=== PATIENT | female | born 1945 | race Caucasian/White ===

== ENCOUNTER 2021-07-21 22:22 | Emergency (ER) | payer MEDICARE, SELFPAY ==
--- NOTE | ~2021-07-21 | XR_ITS ---
EXAMINATION: XR chest 2V EXAM DATE: 07/21/2021 22:59 INDICATION: Generalized weakness for few hours. TECHNIQUE: Frontal and lateral projections of the chest obtained and reviewed. Comparison is made to prior examination from 06/30/2013. FINDINGS: The lungs are clear. There are no pleural effusions. The cardiomediastinal silhouette is within normal limits. There is no pneumothorax suspected. The bones and soft tissues are unremarkab le. IMPRESSION: No acute cardiopulmonary findings. Reviewed, dictated and finalized at location A. TOLOGY PHYSICIAN
--- NOTE | 2021-07-21 22:30 | ECG_ITS ---
Measurements Intervals [place] Rate: 97 P: 58 W[place]: 165 QRS: 0 QRSD: 87 T: 80 QT: 378 QTc: 482 Interpretive Statements SINUS RHYTHM DELAYED PRECORDIAL R/S TRANSITION BORDERLINE ST-T WAVE ABNORMALITY- INF/HIGH LAT LEADS BASELINE ARTIFACT- I, II, III, AVR, AVL, AVF, V1-V6 BORDERLINE ECG Electronically Signed On 07-22-2021 5:54:06 BEAD FORMING MACHINE OPERATOR by Alberto Valenzuela D.O.
[2021-07-21 22:39] VITALS: BP 220/125; PULSE 112; PULSE 92; RESP 20; TEMP 36.2; O2SAT 99
[2021-07-21 22:46] VITALS: BP 199/91; PULSE 98; RESP 13; O2SAT 98
[2021-07-21 22:59] LABS: Basophils Absolute Auto 0.1 K/mm3 (0.0-0.1); Basophils Percent Auto 0.8 % (0.2-1.2); Eosinophils Absolute Auto 0.2 K/mm3 (0-0.3); Eosinophils Percent Auto 2.5 % (0-4.4); Hematocrit 42.4 % (37.0-47.0); Hemoglobin 14.1 g/dL (12.0-15.0); Immature Granulocyte Absolute 0.01 K/mm3 (0.00-0.031); Immature Granulocyte Percent A 0.2 % (0-0.5); Lymphocytes Absolute Auto 1.17 K/mm3 (0.9-3.2); Lymphocytes Percent Auto 18.4 % (18.3-44.2); Mean Corpuscular HGB Conc 33.3 g/dl (32-36); Mean Corpuscular Hemoglobin 31.6 pg (26-34); Mean Corpuscular Volume 95.1 fl (80-100); Mean Platelet Volume 9.6 fl (7.4-10.4); Monocytes Absolute Auto 0.4 K/mm3 (0.1-0.6); Monocytes Percent Auto 5.5 % (2.6-8.5); Neutrophils Absolute Auto 4.6 K/mm3 (1.3-6.7); Neutrophils Percent Auto 72.6 % (45.5-73.1); Platelet Count Result 243 k/mm3 (150-375); Red Blood Count 4.46 M/mm3 (4.2-5.4); Red Cell Distribution Width 12.6 % (11.5-14.5); White Blood Count 6.4 K/mm3 (4.5-10.0)
[2021-07-21 23:02] VITALS: BP 179/95; PULSE 89; RESP 18; O2SAT 97
[2021-07-21 23:10] LABS: Anion Gap 5 mmol/L (8-16); Blood Urea Nitrogen 14 mg/dL (7-17); Calcium 8.8 mg/dL (8.4-10.2); Carbon Dioxide 28 mmol/L (22-30); Chloride 107 mmol/L (98-107); Estimated Glomerular Filt Rate > 60; Glucose 179 mg/dL (65-110); INR 0.8; Potassium 3.6 mmol/L (3.4-5.0); Prothrombin Time 11.5 Seconds (11.1-14.7); Sodium 140 mmol/L (137-145)
[2021-07-21 23:11] LABS: Partial Thromboplastin Time 25.4 SECONDS (22.3-36.8)
[2021-07-21 23:17] VITALS: BP 178/73; PULSE 87; RESP 12
[2021-07-21 23:22] LABS: Troponin I < 0.012 ng/mL (0.000-0.034)
[2021-07-21 23:32] VITALS: BP 172/72; PULSE 83; RESP 11
[2021-07-21 23:46] VITALS: BP 191/71; PULSE 82; RESP 16
[2021-07-21] MEDS: cloNIDine HCL 0.1 MG TABLET PO (23:57)
[2021-07-22 00:01] VITALS: BP 164/68; PULSE 79; RESP 18; O2SAT 98
--- NOTE | 2021-07-22 00:28 | ED.GENADULT ---
HPI - General Adult General Chief complaint: Chest Pain Stated complaint: weakness Time Seen by Provider: 07/21/21 22:44 Source: patient Mode of arrival: ambulatory Limitations: no limitations History of Present Illness HPI narrative: 76-year-old with a history of hypertension, anxiety here with complaints of sudden onset of not feeling well soon after she went to bed. She states that she felt weird. But denied any chest pain, shortness of breath. She states that both her face and arms were tingly. Patient states with the time she came to the ER her symptoms started getting better. Onset (ago): hour(s) (1) Radiation: non-radiation Exacerbating factors: none Associated symptoms: weakness Related Data Home Medications Medication Instructions Recorded Confirmed calcium polycarbophil 625 mg tablet 1,250 mg PO DAILY 11/05/19 04/12/21 cholecalciferol (vitamin D3) 25 25 mcg PO DAILY 11/05/19 04/12/21 mcg (1,000 unit) capsule multivit with 1 tablet PO DAILY 11/05/19 04/12/21 kucvqtjh-misj-SE-lutein 8 mg iron-400 mcg-300 mcg tablet Allergies Allergy/AdvReac Type Severity Reaction Status Date / Time aspirin Allergy Unknown subconjunctival Verified 07/21/21 23:12 hemorrhages penicillin V Allergy Unknown Skin Verified 07/21/21 23:12 Reaction Review of Systems Review of Systems: All systems reviewed & are unremarkable except as noted in HPI and below Constitutional: Constitutional: Reports no additional constitutional complaints Eyes: Eyes: Reports no additional eye complaints ENT: Reports system reviewed and no additional complaints, except as documented Cardiovascular: Cardiovascular: Reports no additional cardiovascular complaints Respiratory: Respiratory: Reports no additional respiratory complaints Gastrointestinal: Gastrointestinal: Reports no additional gastrointestinal complaints Musculoskeletal: Musculoskeletal: Reports no additional musculoskeletal complaints Integumentary/Breasts: Skin/Breast: Reports system reviewed and no additional complaints, except as docu PMFSH Past Medical History Medical History Acute endometritis Encounter for cervical Pap smear with pelvic exam Screening breast examination Surgical History Surgical History History of cervical discectomy Family History Family History Father Family history of cardiovascular disease Family history of glaucoma Hypertension Cerebrovascular accident Family history of coronary artery disease Family history of malignant neoplasm of urinary bladder Family history of renal cell carcinoma Mother Family history of cardiovascular disease Depression Hypertension Family history of elevated blood lipids Family history of coronary artery disease Sibling Family history of malignant neoplasm of urinary bladder Social History Social History Smoking status: Never smoker Alcohol intake: never Exam Narrative: GENERAL: Well-appearing, well-nourished, and in no acute distress. HEAD: Normocephalic, atraumatic. EYES: PERRLA and EOMI NECK: Supple. CHEST: Clear to auscultation. No respiratory distress. HEART: Regular rate and rhythm. No murmur heard. Normal peripheral pulses. ABDOMEN: Soft, nontender, nondistended, normal active bowel sounds. EXTREMITIES: Normal range of motion. No edema. SKIN: Warm, dry, no rash. NEURO: No focal deficits. Alert and oriented x3. PSYCH: Normal mood and affect. Course Course Emergency Course: Patient states she is feeling much better. However her blood pressure was elevated I did give her 0.1 of clonidine which brought it down to 148/68. I did inform her and her family about her lab work, EKG and chest x-ray findings. She does feel much better .. Vital Signs Vital signs:
[2021-07-22 00:53] VITALS: BP 143/69; PULSE 73; RESP 16; O2SAT 98
== END 2021-07-22 00:54 | disposition home or self-care (01) ==
PROVIDERS: Emergency Provider Family Medicine; PCP Family Medicine
DX: R07.89 Other chest pain (principal); F41.9 Anxiety disorder, unspecified
CPT/HCPCS: 36415; 71046; 80048; 84484; 85025; 85610; 85730; 93005; 99284; A9270

== ENCOUNTER 2021-07-24 17:38 | Emergency (ER) | payer MEDICARE, SELFPAY ==
--- NOTE | ~2021-07-24 | XR_ITS ---
EXAMINATION: XR chest 2V DATE: 07/24/2021 18:29 INDICATION: Accelerated hypertension TECHNIQUE: PA and lateral views of the chest are obtained. COMPARISON: 07/21/2021 FINDINGS: The lungs are free of acute opacities. There is no pleural effusion or pneumothorax. The ca rdiomediastinal silhouette is normal. There is mild thoracic spondylosis. IMPRESSION: 1. No acute cardiopulmonary abnormality. Reviewed, dictated and finalized at location A. T SECONDARY EDUCATION INSTRUCTOR
[2021-07-24 17:47] VITALS: BP 176/83; PULSE 82; RESP 18; TEMP 37.3; O2SAT 99
--- NOTE | 2021-07-24 18:15 | ECG_ITS ---
Measurements Intervals [place] Rate: 75 P: 52 [place]: 170 QRS: -11 QRSD: 80 T: 59 QT: 386 QTc: 433 Interpretive Statements SINUS RHYTHM INFERIOR INFARCT, AGE INDETERMINATE BASELINE ARTIFACT- V3-V4 ABNORMAL ECG Electronically Signed On 07-25-2021 7:13:15 EPIC SPECIALIST by Alberto Valenzuela D.O.
--- NOTE | 2021-07-24 18:17 | ED.GENADULT ---
HPI - General Adult General Chief complaint: Recheck/Abnormal Lab/Rx Stated complaint: high blood pressure Time Seen by Provider: 07/24/21 17:45 Source: patient Mode of arrival: ambulatory Limitations: no limitations History of Present Illness HPI narrative: Patient presents for evaluation treatment of hypertension. She has an underlying history of hypertension and is prescribed metoprolol 25 mg once daily and lisinopril 20 mg daily. She is compliant with both medications. She was seen here on 07/22/2021 and states she was evaluated for abnormally high BP's. She states she normally does not check her BP at home, however she felt weird . She states she checked her blood pressure and it was high but she cannot provide me with any numerical data. Documentation from that visit indicates the patient's blood pressure was 220/125. Work-up in the ER was fairly unremarkable. She was given clonidine and her blood pressure improved. She states over the last few days her BP has been fairly normal. She believes her systolic pressures were in 140's. States she checked her blood sugar and states that it was high . She believes her systolic pressure was above 200. She states that she does not feel particularly abnormal. She denies any chest pain, SOB, dizziness, lightheadedness or headache. No leg swelling. She contacted her daughter who is a physician in [place] and was advised to come in for further evaluation. She did take an extra dose of her metoprolol. She denies any recent increase in stress. She does admit to drinking wine with dinner. She denies any illicit drug use or tobacco use. Related Data Home Medications Medication Instructions Recorded Confirmed calcium polycarbophil 625 mg tablet 1,250 mg PO DAILY 11/05/19 04/12/21 cholecalciferol (vitamin D3) 25 25 mcg PO DAILY 11/05/19 04/12/21 mcg (1,000 unit) capsule multivit with 1 tablet PO DAILY 11/05/19 04/12/21 hkskocxn-znmi-SE-lutein 8 mg iron-400 mcg-300 mcg tablet Allergies Allergy/AdvReac Type Severity Reaction Status Date / Time aspirin Allergy Unknown subconjunctival Verified 07/21/21 23:12 hemorrhages penicillin V Allergy Unknown Skin Verified 07/21/21 23:12 Reaction Review of Systems Review of Systems: CONSTITUTIONAL: Denies fever, chills, or sweats. EYES: Denies visual changes, redness, or discharge. ENT: Denies rhinorrhea, congestion, sore throat, or otalgia. CARDIOVASCULAR: Denies chest pain, palpitations, or edema. RESPIRATORY: Denies cough or dyspnea. GASTROINTESTINAL: Denies abdominal pain, nausea, vomiting, or diarrhea. GENITOURINARY: Denies dysuria or hematuria. SKIN: Denies rash or itching. MUSCULOSKELETAL: Denies back pain, joint pain, or myalgia. NEUROLOGIC: Denies headache, numbness, dizziness, or weakness. PSYCHIATRIC: Denies anxiety or depression. [facility], [facility] Past Medical History Medical History Acute endometritis Encounter for cervical Pap smear with pelvic exam Hyperlipidemia Hypertension Screening breast examination Surgical History Surgical History History of cervical discectomy Family History Family History Father Family history of cardiovascular disease Family history of glaucoma Hypertension Cerebrovascular accident Family history of coronary artery disease Family history of malignant neoplasm of urinary bladder Family history of renal cell carcinoma Mother Family history of cardiovascular disease Depression Hypertension Family history of elevated blood lipids Family history of coronary artery disease Sibling Family history of malignant neoplasm of urinary bladder Social History Social History (Updated 07/24/21 @ 18:19 by SHAMAR Farrell, BC) Smoking status: Never smoker Alcohol intake: current Alcohol us
[2021-07-24 18:49] LABS: Basophils Percent Auto 0.6 % (0.2-1.2); Eosinophils Absolute Auto 0.1 K/mm3 (0-0.3); Eosinophils Percent Auto 1.7 % (0-4.4); Hematocrit 41.9 % (37.0-47.0); Hemoglobin 14.1 g/dL (12.0-15.0); Immature Granulocyte Absolute 0.01 K/mm3 (0.00-0.031); Immature Granulocyte Percent A 0.1 % (0-0.5); Lymphocytes Absolute Auto 0.66 K/mm3 (0.9-3.2); Lymphocytes Percent Auto 9.4 % (18.3-44.2); Mean Corpuscular HGB Conc 33.7 g/dl (32-36); Mean Corpuscular Hemoglobin 31.9 pg (26-34); Mean Corpuscular Volume 94.8 fl (80-100); Mean Platelet Volume 9.1 fl (7.4-10.4); Monocytes Absolute Auto 0.4 K/mm3 (0.1-0.6); Monocytes Percent Auto 5.7 % (2.6-8.5); Neutrophils Absolute Auto 5.8 K/mm3 (1.3-6.7); Neutrophils Percent Auto 82.5 % (45.5-73.1); Platelet Count Result 201 k/mm3 (150-375); Red Blood Count 4.42 M/mm3 (4.2-5.4); Red Cell Distribution Width 12.2 % (11.5-14.5)
[2021-07-24 18:59] LABS: Alanine Aminotransferase 18 U/L (4-35); Albumin Level 4.5 g/dL (3.5-5.1); Alkaline Phosphatase 73 U/L (38-126); Anion Gap 8 mmol/L (8-16); Aspartate Amino Transferase 24 U/L (14-36); Bilirubin,Total 0.8 mg/dL (0.2-1.3); Blood Urea Nitrogen 17 mg/dL (7-17); Calcium 9.2 mg/dL (8.4-10.2); Carbon Dioxide 28 mmol/L (22-30); Chloride 103 mmol/L (98-107); Estimated CRCL calculation 42 ml/min; Estimated Glomerular Filt Rate > 60; Glucose 141 mg/dL (65-110); Potassium 3.7 mmol/L (3.4-5.0); Sodium 139 mmol/L (137-145)
[2021-07-24 19:02] VITALS: BP 155/70; PULSE 78; RESP 18; O2SAT 98
[2021-07-24 19:11] LABS: Troponin I < 0.012 ng/mL (0.000-0.034)
[2021-07-24 19:18] VITALS: BP 172/62; PULSE 80; RESP 18; O2SAT 98
[2021-07-24 19:25] LABS: Add Urine Microscopic? YES; Appearance Urine Cloudy (Clear); Bilirubin Urine Negative (Negative); Blood Urine 1+ (Negative); Color Urine Colorless (Yellow); Glucose Urine UA Negative (Negative); Ketones Urine Negative (Negative); Leukocyte Esterase Ur 1+ LEU/UL (Negative); Mucus Urine Rare /lpf; Nitrate Urine Negative (Negative); Protein Urine Negative (Negative); RBC Urine 0-2 /hpf (0-2); Squamous Epithelial Cell Urine Occasional /hpf (Few); Urobilinogen Urine Negative mg/dL (<2.0)
[2021-07-24 19:26] LABS: Specific Grav Ur 1.003 (1.001-1.035)
[2021-07-24 20:06] LABS: Free T4 Free Thyroxine 1.18 ng/mL (0.78-2.19)
[2021-07-24 20:08] VITALS: BP 124/62; PULSE 72; RESP 18; O2SAT 97
[2021-07-24 21:13] VITALS: BP 130/65; PULSE 71; RESP 18; O2SAT 99
== END 2021-07-24 21:15 | disposition home or self-care (01) ==
PROVIDERS: Emergency Provider Nurse Practitioner; PCP Family Medicine
DX: I10 Essential (primary) hypertension (principal); E78.5 Hyperlipidemia, unspecified; Z79.899 Other long term (current) drug therapy
CPT/HCPCS: 36415; 71046; 80053; 81001; 84439; 84443; 84484; 85025; 93005; 99284

== ENCOUNTER 2021-07-25 17:26 | Emergency (ER) | payer MEDICARE, SELFPAY ==
[2021-07-25 18:00] VITALS: BP 213/86; PULSE 89; RESP 20; TEMP 36.8; O2SAT 100
--- NOTE | 2021-07-25 19:28 | PC.NURSE ---
patient states she feels better and will just follow up with pmd tomorrow. left waiting area
== END 2021-07-25 21:34 | disposition left against medical advice (07) ==
DX: Z53.21 Procedure and treatment not carried out due to patient leaving prior to being seen by health care provider (principal)
CPT/HCPCS: 99199

== ENCOUNTER 2021-07-29 19:32 | Observation (INO) | payer MEDICARE, SELFPAY ==
--- NOTE | ~2021-07-29 | XR_ITS ---
EXAMINATION: XR chest 2V DATE: 07/29/2021 20:16 INDICATION: I do not feel right . Hypertension. TECHNIQUE: PA and lateral views of the chest were obtained. COMPARISON: Chest radiograph dated 07/24/2021 FINDINGS: The lungs remain clear with no focal airspace opacities, pulmonary edema, pleural effusion or pneumot horax. The cardiomediastinal silhouette is normal. Mild S-shaped curvature of the thoracolumbar spine . IMPRESSION: 1. No acute cardiopulmonary disease. Reviewed, dictated and finalized at location A. SMITH
--- NOTE | ~2021-07-29 | US_ITS ---
EXAMINATION: US retroperitoneal duplex ltd DATE: 07/30/2021 09:13 INDICATION: Hypertension. TECHNIQUE: Multiple grayscale, color Doppler, and pulsed Doppler images of the kidneys and renal genesis rajiv were obtained. COMPARISON: CT abdomen 02/19/2007 FINDINGS: The aorta peak systolic velocity is 99 cm/s. The right renal artery peak systolic velocity is 98 cm/s in the proximal segment, 66 cm/s in the mid segment, and 80 cm/s in the distal segment. The left amy al artery peak systolic velocity is 102 cm/s in the proximal segment, 110 cm/s in the mid segment, an d 86 cm/s in the distal segment. IMPRESSION: 1. No Doppler evidence of renal artery stenosis. The prior CT similarly shows no significant renal a rtery stenosis. Reviewed, dictated and finalized at location A. HER OF THE DEAF/HARD OF HEARING IMPRESSION: 1. No Doppler evidence of renal artery stenosis. The prior CT similarly shows no significant renal artery stenosis.
[2021-07-29 19:34] VITALS: BP 205/100; PULSE 79; RESP 18; TEMP 36; O2SAT 100
[2021-07-29 19:54] VITALS: O2SAT 99
--- NOTE | 2021-07-29 19:55 | ECG_ITS ---
Measurements Intervals [place] Rate: 68 P: 56 NM: 171 QRS: -7 QRSD: 80 T: 64 QT: 391 QTc: 416 Interpretive Statements SINUS RHYTHM DELAYED PRECORDIAL R/S TRANSITION CONSIDER INFERIOR INFARCT, AGE INDETERMINATE BORDERLINE ST-T WAVE ABNORMALITY- HIGH LATERAL LEADS BASELINE ARTIFACT- I, II, AVR ABNORMAL ECG Electronically Signed On 07-29-2021 20:08:37 FINANCIAL ASSISTANCE ADVISOR by Alberto Valenzuela D.O.
[2021-07-29 20:10] LABS: Basophils Percent Auto 0.7 % (0.2-1.2); Eosinophils Absolute Auto 0.2 K/mm3 (0-0.3); Eosinophils Percent Auto 2.7 % (0-4.4); Hematocrit 41.3 % (37.0-47.0); Hemoglobin 13.9 g/dL (12.0-15.0); Immature Granulocyte Absolute 0.02 K/mm3 (0.00-0.031); Immature Granulocyte Percent A 0.4 % (0-0.5); Lymphocytes Absolute Auto 1.33 K/mm3 (0.9-3.2); Lymphocytes Percent Auto 23.5 % (18.3-44.2); Mean Corpuscular HGB Conc 33.7 g/dl (32-36); Mean Corpuscular Hemoglobin 31.7 pg (26-34); Mean Corpuscular Volume 94.3 fl (80-100); Mean Platelet Volume 9.1 fl (7.4-10.4); Monocytes Absolute Auto 0.4 K/mm3 (0.1-0.6); Monocytes Percent Auto 6.9 % (2.6-8.5); Neutrophils Absolute Auto 3.7 K/mm3 (1.3-6.7); Neutrophils Percent Auto 65.8 % (45.5-73.1); Platelet Count Result 261 k/mm3 (150-375); Red Blood Count 4.38 M/mm3 (4.2-5.4); Red Cell Distribution Width 11.9 % (11.5-14.5); White Blood Count 5.7 K/mm3 (4.5-10.0)
[2021-07-29 20:20] LABS: Alanine Aminotransferase 19 U/L (4-35); Albumin Level 4.3 g/dL (3.5-5.1); Alkaline Phosphatase 71 U/L (38-126); Anion Gap 5 mmol/L (8-16); Aspartate Amino Transferase 25 U/L (14-36); Bilirubin,Total 0.6 mg/dL (0.2-1.3); Blood Urea Nitrogen 12 mg/dL (7-17); Calcium 9.6 mg/dL (8.4-10.2); Carbon Dioxide 31 mmol/L (22-30); Chloride 103 mmol/L (98-107); Estimated CRCL calculation 59 ml/min; Estimated Glomerular Filt Rate > 60; Glucose 119 mg/dL (65-110); INR 0.9; Lipase 102 U/L (23-300); Potassium 3.9 mmol/L (3.4-5.0); Prothrombin Time 12.3 Seconds (11.1-14.7); Sodium 139 mmol/L (137-145)
[2021-07-29 20:21] LABS: Partial Thromboplastin Time 26.5 SECONDS (22.3-36.8)
[2021-07-29 20:31] LABS: Troponin I < 0.012 ng/mL (0.000-0.034)
[2021-07-29] MEDS: NITROGLYCERIN SL 0.4 MG TABLET SUBLINGUAL (21:06)
[2021-07-29 21:07] VITALS: BP 188/84; PULSE 66; RESP 18; O2SAT 98
--- NOTE | 2021-07-29 21:13 | ED.CHESTPAIN ---
HPI - Chest Pain General Chief Complaint: Chest Pain Stated Complaint: discomfort in chest, shaking Time Seen by Provider: 07/29/21 20:55 Source: patient Mode of arrival: ambulatory Limitations: no limitations History of Present Illness HPI narrative: Patient is a 76-year-old female complaining of chest discomfort, midsternal, 8 out of 10, nonradiating started approximately 2 hours prior to arrival. Patient denies any shortness of breath, abdominal pain, nausea, vomiting, diaphoresis, fever or chills. Related Data Home Medications Medication Instructions Recorded Confirmed calcium polycarbophil 625 mg tablet 1,250 mg PO DAILY 11/05/19 07/26/21 cholecalciferol (vitamin D3) 25 25 mcg PO DAILY 11/05/19 07/26/21 mcg (1,000 unit) capsule multivit with 1 tablet PO DAILY 11/05/19 07/26/21 qroenplh-yldw-KK-lutein 8 mg iron-400 mcg-300 mcg tablet Allergies Allergy/AdvReac Type Severity Reaction Status Date / Time aspirin Allergy Unknown subconjunctival Verified 07/29/21 19:56 hemorrhages penicillin V Allergy Unknown Skin Verified 07/29/21 19:56 Reaction Review of Systems Review of Systems: All systems reviewed & are unremarkable except as noted in HPI and below Constitutional: Constitutional: Denies body ache(s), Denies chills, Denies excessive sweating, Denies fatigue, Denies fever(s), Denies headache(s), Denies lethargy, Denies malaise, Denies weakness and Denies weight loss Eyes: Eyes: Denies blurry vision, Denies change in vision and Denies loss of vision ENT: Denies dizziness, Denies ear discharge, Denies headache(s), Denies lip swelling, Denies epistaxis, Denies nasal congestion, Denies neck pain, Denies throat swelling and Denies tongue swelling Cardiovascular: Cardiovascular: Reports chest pain, Denies chest pain at rest, Denies chest pain with activity, Denies diaphoresis, Denies rapid heart rate, Denies edema, Denies irregular heart rhythm, Denies lightheadedness, Denies palpitations, Denies dyspnea and Denies dyspnea on exertion Respiratory: Respiratory: Denies chest congestion, Denies cough, Denies hemoptysis, Denies dyspnea and Denies dyspnea on exertion Gastrointestinal: Gastrointestinal: Denies abdominal pain, Denies melena, Denies hematochezia, Denies diarrhea, Denies nausea, Denies vomiting and Denies hematemesis Musculoskeletal: Musculoskeletal: Denies abnormal gait, Denies deformity, Denies joint swelling, Denies limited range of motion, Denies neck pain and Denies numbness Neurologic: Denies Abnormal speech present, Denies abnormal gait, Denies confusion, Denies dizziness, Denies headache(s), Denies focal weakness, Denies loss of vision, Denies numbness, Denies Other visual disturbances, Denies Sensory deficit (Neuro) and Denies weakness Psychiatric: Psychiatric: Denies confusion, Denies depression, Denies auditory hallucinations, Denies homicidal ideation and Denies suicidal ideation Endocrine: Endocrine: Denies cold intolerance, Denies excessive sweating, Denies fatigue, Denies heat intolerance and Denies palpitations Hematologic/Lymphatic: Hematologic/Lymphatic: Denies easy bleeding and Denies easy bruising Allergic/Immunologic: Allergic/Immunologic: Denies lip swelling, Denies throat swelling and Denies tongue swelling PMFSH Past Medical History Medical History Acute endometritis Encounter for cervical Pap smear with pelvic exam Hyperlipidemia Hypertension Screening breast examination Surgical History Surgical History History of cervical discectomy Family History Family History Father Family history of cardiovascular disease Family history of glaucoma Hypertension Cerebrovascular accident Family history of coronary artery disease Family history of malignant neoplasm of urinary bladder Family history of
[2021-07-29 21:17] VITALS: BP 157/74; PULSE 67; RESP 17; O2SAT 98
[2021-07-29 22:32] VITALS: BP 148/66; PULSE 61; RESP 14; O2SAT 98
--- NOTE | 2021-07-29 22:45 | PC.NURSE ---
gave patient 2 0.4mg sublingual tablets of nitroglycerin 5 minutes apart and pt's chest discomfort subsided.
[2021-07-29 23:26] LABS: Troponin I < 0.012 ng/mL (0.000-0.034)
--- NOTE | 2021-07-29 23:40 | PM.IMHP ---
H&P: HPI History of Present Illness Date/Time: 07/29/21 23:40 Chief Complaint: ?did not feel right? Narrative: 76-year-old female with past medical history of anxiety, hypertension and hyperlipidemia who presented to the ER with sensation of not feeling right associated with some chest discomfort. The patient had recently been evaluated in the ER on July 21 and July 24 for similar symptoms. On the she presented to the ER with sudden onset of not feeling well after she went to bed. She denied having any chest pain or shortness of breath but her face in arm seemed to tingle. When she presented to the ER that time her blood pressures were 220/125. She received 1 dose of 0.1 mg of clonidine and her blood pressures normalized down to 148/68. When she returned to the ER on the she was also feeling weird and checked her blood pressure and again her blood pressure was greater than 200 systolic. She took an extra dose of her metoprolol and her daughter who is a physician in [place] told her to come to the ER for evaluation. She had several high readings in the ER but they were quite variable. Her initial blood pressure at that time was 172/62 but dropped to 124/62 without any intervention. At that time her lisinopril was increased to 30 mg a day and her metoprolol was continued at the same dose. She returned to the ER on the but left without being seen because of the long wait time. Her blood pressure in triage at that time was 2:13 a.m. over 86. She followed up with her primary care provider on the and her initial blood pressure at that time was 190/90 but repeat blood pressure was 128/80 without intervention. The patient admitted to her primary care provider that she has been having some increased anxiety recently. She had not been reporting any chest pain or shortness of breath up to that point. Primary care increase the patient's lisinopril to 45 mg daily and to monitor blood pressure twice daily. She had her blood pressure log with her and her blood pressures have ranged between 215/127 to 161/92 over the last 3 days. She was instructed to come to the ER if she developed chest pain or other symptoms. The patient denies having true chest pain but stated she was having some discomfort in her chest. She reports the discomfort was generalized and did not radiate. She could not give me in intensity to the pain or a descriptor of the pain. But in the ER she told the ER staff the pain was 8/10 in intensity. She also reports that at the same time she was having the chest discomfort she has a burning sensation in the roof of her mouth. She reports that this sensation has occurred each time that she has presented to the ER. She denies any nausea, vomiting, diaphoresis or palpitations. She has not been having any shortness of breath, cough or congestion. She denies any heartburn her history of GERD. She does have a history of anxiety and is been feeling more anxious ever since she received her Moderna COVID booster on 07/23/2021. She reports that all of these symptoms started after she received her COVID booster and her influenza vaccine. She denies having any fatigued with fevers or chills. She denies any headache or visual changes. She has not taken any vaci-kfb-ypnynik substances. In the ER the patient received 2 doses of sublingual nitro with resolution of her symptoms. Her blood pressure also from 10/16 systolic down to 148 systolic. Review of Systems Review of Systems: 12 systems were reviewed with pertinent positives and negatives per HPI. Except as documented in the HPI, all other systems were reviewed and are negative. [facility] Past Medical History Medical History (Updated 07/30/21 @ 02:38 by Nancy King DO) Acute endometritis Encounter for cervical Pap smear with pelvic exam Hyperlipidemia Hypertension Screening breast examination Vitamin D deficiency, unspecified Surgical History Surgical History (Review
[2021-07-29 23:52] VITALS: BP 162/79; PULSE 72; RESP 16; O2SAT 99
[2021-07-30] VITALS (13 sets, daily range): BP systolic 135–150; BP diastolic 7–74; PULSE 61–74; RESP 12–20; TEMP 36.4–36.6; O2SAT 97–100; BMI 25.7
--- NOTE | 2021-07-30 01:53 | ADMGEN ---
This patient, Georgiana Laurent, was admitted to IMU Room 211-01 on 07/30/21 at 0005. Patient/family oriented to hospital policies and general routines including ID bracelet, bed and alarms, visiting hours, pain management, procedures, bathroom and other care routines, personal items, smoking policy, room service/diet, and visiting hours. Information on how to activate the Rapid Response Team has been discussed. Patient/Family are encouraged to report perceived risks to care and to ask questions if they do not understand what they are told or what they should do.
[2021-07-30 02:25] LABS: Troponin I < 0.012 ng/mL (0.000-0.034)
[2021-07-30] MEDS: ENOXAPARIN 40 MG/0.4 ML SYRINGE SUB-Q (09:25)
[2021-07-30] MEDS: THERAPEUTIC MULTIVITAMINS/MINERALS TAB (*BKC) 1 TABLET PO (09:26)
[2021-07-30] MEDS: METOPROLOL SUCCINATE EXT REL 25 MG TABCR PO (09:26)
[2021-07-30] MEDS: lisinopriL 10 MG TABLET 30 MG PO (09:26)
[2021-07-30] MEDS: SIMVASTATIN 20 MG TABLET 40 MG PO (09:27)
--- NOTE | 2021-07-30 14:24 | PC.NURSE ---
On 07/30/21, the student, [Krysten Duggan], provided care and completed [facility] on this patient. I have reviewed the student's documentation and agree with the findings.
--- NOTE | 2021-07-30 16:12 | PM.DS ---
DS: Admitting Diagnosis Discharge Date 07/30/21 Admitting Diagnosis Elevated BP DS: Discharge Diagnosis Discharge Diagnosis (1) Hypertensive urgency: Code(s): I16.0 - Hypertensive urgency Status: Acute (2) Chest pain: Qualifiers: Chest pain type: unspecified Qualified Code(s): R07.9 - Chest pain, unspecified Code(s): R07.9 - Chest pain, unspecified Status: Acute DS: Summary Hospital Course Reason for hospitalization: 76yo female with HTN here for elevated BP. Please see H&P for details Hospital Course: Patient was seen in the emergency room and was found have a blood pressure 205/100. She brings in blood pressures from home which shows a systolic blood pressure normally runs 170 to 190s; occasionally 215. She is compliant with her medications. She was seen in the clinic recently and was told to increase her metoprolol. There was concern that she may have anxiety contributing to her uncontrolled blood pressure. Patient received a nitroglycerin sublingual in the emergency room and was resume back on home medications. Her blood pressure dropped to a systolic in the 130-140 range and diastolic in the 60-70 range without any further treatment. Her daughter arrived who is a physician. Patient denies any chest pain for me or for the daughter but does states that she ?does not feel right? and points to her chest. She has never had a stress test. She denies the chest discomfort is worse with activity. There was no diaphoresis or flushing. She does have impending doom and metallic taste however. No headaches. No nausea vomiting. No shortness of breath. Lab work was unrevealing. Troponins were negative x3. EKG showed no acute findings but did show normal sinus rhythm with delayed transition, a borderline ST T wave changes in the high lateral leads. Chest x-ray was clear. There is no Doppler evidence of renal artery stenosis. We did dose spot urines for pheochromocytoma. Patient's daughter and the patient felt comfortable with discharge. Patient to monitor blood pressure home. Will order outpatient echocardiogram. Patient follow-up with her primary care doctor in the next few days. Information was given regarding a dash diet. Status at Discharge Cognitive/behavioral status at discharge: Stable Time Spent with Patient Time attestation: Total time spent providing and/or coordinating discharge services: 35 minutes Time spent: Greater than 30 minutes Exam Narrative: AF 97.7 141/65 74 12 98% ra Gen - NARD Chest - CTA bilaterally, nml RR CV - RRR S1/S2; Tele showing no significant dysrhythmias Abd - Soft, NT/ND, Positive BS Ext - No pedal edema Neuro - Alert and oriented. Nonfocal exam. Psych - Nml mood and affect Skin - Warm and dry DS: Data Data Completed and Pending Labs on day of discharge: Labs from last 24 hours 07/30/21 07/29/21 07/29/21 01:51 23:01 20:05 WBC RBC Hgb Hct MCV MCH MCHC RDW Plt Count MPV Immature Gran % (Auto) Neut % (Auto) Lymph % (Auto) [place] % (Auto) Eos % (Auto) Baso % (Auto) Lymph # (Auto) [place] # (Auto) Eos # (Auto) Baso # (Auto) Abs Immat Gran (auto) Absolute Neuts (auto) Absolute Nucleated RBC Nucleated RBC % PT INR APTT Sodium 139 Potassium 3.9 Chloride 103 Carbon Dioxide 31 H Anion Gap 5 L BUN 12 D Creatinine 0.80 Estim Creat Clear Calc 59 Estimated GFR > 60 Glucose 119 H Calcium 9.6 Total Bilirubin 0.6 AST 25 ALT 19 Alkaline Phosphatase 71 Troponin I < 0.012 < 0.012 < 0.012 Total Protein 7.0 Albumin 4.3 Lipase 102 07/29/21 07/29/21 20:05 20:05 WBC 5.7 RBC 4.38 Hgb 13.9 Hct 41.3 MCV 94.3 MCH 31.7 MCHC 33.7 RDW 11.9 Plt Count 261 MPV 9.1 Immature Gran % (Auto) 0.4 Neut % (Auto) 65.8 Lymph % (Auto) 23.5 [place] % (Auto) 6.9
[2021-08-04 12:33] LABS: Creatinine, Random Urine 25 mg/dL (20-275); Metanephrine, Total Urine 365 mcg/g cr (149-603); Metanephrine, Urine 131 mcg/g cr (21-153); Normetanephrine, Urine 234 mcg/g cr (108-524)
[2021-08-04 15:49] LABS: Metanephrine, Free 60 pg/mL (<=57); Normetanephrine, Free 98 pg/mL (<=148); Total, Free (MN + NMN) 158 pg/mL (<=205)
== END 2021-07-30 17:29 | disposition home or self-care (01) ==
LOC: ANHED 22:32 → ANHIMU 07-30 10:20
PROVIDERS: Admitting Provider Internal Medicine; Emergency Provider Emergency Medicine; PCP Family Medicine; Visit Provider Internal Medicine
DX: I16.0 Hypertensive urgency (principal); R07.9 Chest pain, unspecified; I10 Essential (primary) hypertension
CPT/HCPCS: 36415; 71046; 80053; 82384; 82570; 83690; 83835; 84484; 85025; 85610; 85730; 93005; 93976; 96372; 99285; A9270; G0378; J1650

== ENCOUNTER 2021-08-07 18:41 | Emergency (ER) | payer MEDICARE, SELFPAY ==
[2021-08-07] VITALS (37 sets, daily range): BP systolic 122–178; BP diastolic 53–97; PULSE 57–82; RESP 10–25; TEMP 36.1–36.2; O2SAT 95–99
--- NOTE | ~2021-08-07 | XR_ITS ---
EXAMINATION: XR chest 2V 08/07/2021 19:19 INDICATION: Generalized chest pain PROCEDURE: 2 view chest COMPARISON: Comparison to multiple prior studies sequentially, with oldest reviewed study dated 06/12. FINDINGS: The lungs are clear. The cardiomediastinal silhouette is within normal limits. There are no pleural effusions. There is no pneumothorax suspected. IMPRESSION: 1: NO ACUTE CARDIOPULMONARY DISEASE. Reviewed, dictated and finalized at location A. SCRIPT FRONT END DEVELOPER
--- NOTE | 2021-08-07 18:44 | ECG_ITS ---
Measurements Intervals [place] Rate: 71 P: 51 PA: 155 QRS: -23 QRSD: 89 T: 61 QT: 421 QTc: 459 Interpretive Statements SINUS RHYTHM DELAYED PRECORDIAL R/S TRANSITION BORDERLINE ST-T WAVE ABNORMALITY- HIGH LATERAL LEADS BASELINE ARTIFACT- I, II, III, AVR, AVF, V2-V6 BORDERLINE ECG Electronically Signed On 08-08-2021 9:24:48 MAGNETIC RESONANCE IMAGING COORDINATOR by Alberto Valenzuela D.O.
[2021-08-07 19:05] LABS: Basophils Absolute Auto 0.1 K/mm3 (0.0-0.1); Basophils Percent Auto 0.8 % (0.2-1.2); Eosinophils Absolute Auto 0.1 K/mm3 (0-0.3); Hematocrit 41.1 % (37.0-47.0); Immature Granulocyte Absolute 0.02 K/mm3 (0.00-0.031); Immature Granulocyte Percent A 0.3 % (0-0.5); Lymphocytes Absolute Auto 1.38 K/mm3 (0.9-3.2); Lymphocytes Percent Auto 18.9 % (18.3-44.2); Mean Corpuscular HGB Conc 34.1 g/dl (32-36); Mean Corpuscular Hemoglobin 31.8 pg (26-34); Mean Corpuscular Volume 93.4 fl (80-100); Mean Platelet Volume 9.3 fl (7.4-10.4); Monocytes Absolute Auto 0.5 K/mm3 (0.1-0.6); Monocytes Percent Auto 6.4 % (2.6-8.5); Neutrophils Absolute Auto 5.3 K/mm3 (1.3-6.7); Neutrophils Percent Auto 72.6 % (45.5-73.1); Platelet Count Result 295 k/mm3 (150-375); Red Cell Distribution Width 11.9 % (11.5-14.5); White Blood Count 7.3 K/mm3 (4.5-10.0)
[2021-08-07 19:16] LABS: Alanine Aminotransferase 22 U/L (4-35); Albumin Level 4.3 g/dL (3.5-5.1); Alkaline Phosphatase 78 U/L (38-126); Anion Gap 10 mmol/L (8-16); Aspartate Amino Transferase 26 U/L (14-36); Bilirubin,Total 0.7 mg/dL (0.2-1.3); Blood Urea Nitrogen 12 mg/dL (7-17); Calcium 9.3 mg/dL (8.4-10.2); Carbon Dioxide 26 mmol/L (22-30); Chloride 103 mmol/L (98-107); Estimated CRCL calculation 44 ml/min; Estimated Glomerular Filt Rate > 60; Glucose 156 mg/dL (65-110); Lipase 108 U/L (23-300); Potassium 3.4 mmol/L (3.4-5.0); Sodium 139 mmol/L (137-145)
[2021-08-07 19:28] LABS: Troponin I < 0.012 ng/mL (0.000-0.034)
[2021-08-07 19:30] LABS: Prothrombin Time 12.9 Seconds (11.1-14.7)
[2021-08-07 19:31] LABS: Partial Thromboplastin Time 26.6 SECONDS (22.3-36.8)
--- NOTE | 2021-08-07 19:33 | ED.GENADULT ---
HPI - General Adult General Chief complaint: Chest Pain Stated complaint: chest pain Time Seen by Provider: 08/07/21 19:05 History of Present Illness HPI narrative: Patient 76-year-old female presents the emergency department with chief complaint of burning in the mouth through the chest and in the upper abdomen. Patient reports is been going on for about 10days and noticed that it is more associated with the metoprolol she has been taking. Patient states that she was admitted for hypertensive urgency and had new medication started she noticed that her blood pressures been trending on the downward side and now is in the 170 systolic. Patient denies specific chest pain denies shortness of breath reports that she has talked to her primary care physician who says that she may need to follow-up with a cardiology. Related Data Home Medications Medication Instructions Recorded Confirmed multivit with 1 tablet PO DAILY 11/05/19 08/02/21 [id number] 8 mg iron-400 mcg-300 mcg tablet Allergies Allergy/AdvReac Type Severity Reaction Status Date / Time aspirin Allergy Unknown subconjunctival Verified 08/07/21 19:25 hemorrhages penicillin V Allergy Unknown Skin Verified 08/07/21 19:25 Reaction Review of Systems Review of Systems: A 10 system review of systems was completed on the patient and is negative except for what is stated in the HPI. Nursing and ancillary documentation was reviewed. [facility] Past Medical History Medical History Acute endometritis Encounter for cervical Pap smear with pelvic exam Hyperlipidemia Hypertension Screening breast examination Vitamin D deficiency, unspecified Surgical History Surgical History History of cervical discectomy Family History Family History Father Family history of cardiovascular disease Family history of glaucoma Hypertension Cerebrovascular accident Family history of coronary artery disease Family history of malignant neoplasm of urinary bladder Family history of renal cell carcinoma Mother Family history of cardiovascular disease Depression Hypertension Family history of elevated blood lipids Family history of coronary artery disease Sibling Family history of malignant neoplasm of urinary bladder Social History Social History Social History: She is but lives with her senior care boyfriend. She drinks a glass a wine nightly. She is a retired teacher. She has 3 children who are healthy. Second hand tobacco smoke exposure: Yes Alcohol intake: current Alcohol use details: Wine with dinner Substance use: never Substance use type: does not use Gender identity (if verbalized by the patient): Female Sexual Orientation (if Verbalized by the Patient): Straight or Heterosexual Spiritual care concerns: No Exam Narrative: GENERAL: Well-appearing, well-nourished, and in no acute distress. HEAD: Normocephalic, atraumatic. EYES: PERRLA and EOMI. ENT: Nares clear, no rhinorrhea or epistaxis. Mucous membranes moist. NECK: Supple. CHEST: Clear to auscultation. No respiratory distress. HEART: Regular rate and rhythm. No murmur heard. Normal peripheral pulses. ABDOMEN: Soft, nontender, nondistended, normal active bowel sounds. EXTREMITIES: Normal range of motion. No edema. SKIN: Warm, dry, no rash. NEURO: No focal deficits. Alert and oriented x3. PSYCH: Normal mood and affect. Course Course Emergency Course: EKG is sinus rhythm rate of [address] elevation or ST depression Patient is feeling much better after GI cocktail and Protonix. Vital Signs Vital signs: Vital Signs Temperature 36.2 C L 08/07/21 18:47 Pulse Rate 82
[2021-08-07] MEDS: PANTOPRAZOLE SODIUM IV 40 MG VIAL IV PUSH (19:41)
[2021-08-07] MEDS: BELLADONNA ALK/PHENOB ELIX 10 ML, MAG HYDROX/ALUMINUM HYD/SIMETH 30 ML, LIDOCAINE HCL 2... PO (19:43)
[2021-08-07 22:29] LABS: Troponin I < 0.012 ng/mL (0.000-0.034)
== END 2021-08-07 23:10 | disposition home or self-care (01) ==
PROVIDERS: Emergency Medicine; Emergency Provider Emergency Medicine; PCP Family Medicine
DX: R07.89 Other chest pain (principal); K21.9 Gastro-esophageal reflux disease without esophagitis; E78.5 Hyperlipidemia, unspecified; I10 Essential (primary) hypertension; E55.9 Vitamin D deficiency, unspecified; R94.31 Abnormal electrocardiogram [ECG] [EKG]
CPT/HCPCS: 36415; 71046; 80053; 83690; 84484; 85025; 85610; 85730; 93005; 96374; 99284; A9270; C9113

== ENCOUNTER 2021-08-18 09:15 | Outpatient (CLI) | payer MEDICARE, SELFPAY ==
--- NOTE | ~2021-08-18 | MM_ITS ---
EXAMINATION: MM screening deon BI w roberto HISTORY: Screening TECHNIQUE: Craniocaudal and mediolateral oblique 3-D tomosynthesis images were obtained and synthetic 2-D images were generated. CAD analysis was submitted and interpreted. COMPARISON: Comparison to multiple prior studies sequentially, with oldest reviewed study dated 03/10. BREAST PARENCHYMAL COMPOSITION: There are scattered areas of fibroglandular density. FINDINGS: There is no evidence of suspicious mass, calcification, or architectural distortion to sugg est malignancy in either breast. There has been no suspicious interval change. IMPRESSION: 1. No mammographic evidence of malignancy. 2. Recommend routine screening mammography in one year. BI-RADS Category 1: Negative Reviewed, dictated and finalized at location A. ADMINISTRATOR
== END 2021-08-18 09:16 | disposition home or self-care (01) ==
LOC: ANHIMG 09:17
PROVIDERS: PCP Family Medicine; Visit Provider Physician Assistant
DX: Z12.31 Encounter for screening mammogram for malignant neoplasm of breast (principal)
CPT/HCPCS: 77063; 77067

== ENCOUNTER 2022-10-20 08:28 | Outpatient (CLI) | payer MEDICARE, SELFPAY ==
--- NOTE | ~2022-10-20 | MM_ITS ---
EXAMINATION: MM screening deon BI w roberto HISTORY: Screening mammogram TECHNIQUE: Craniocaudal and mediolateral oblique 3-D tomosynthesis images were obtained and synthetic 2-D images were generated. CAD analysis was submitted and interpreted. COMPARISON: 08/18, 03/07/2019, 05/26/2017 bilateral screening mammogram examinations BREAST PARENCHYMAL COMPOSITION: There are scattered areas of fibroglandular density. FINDINGS: There is no evidence of suspicious mass, calcification, or architectural distortion to sugg est malignancy in either breast. There has been no suspicious interval change. IMPRESSION: 1. No mammographic evidence of malignancy. 2. Recommend routine screening mammography in one year. BI-RADS Category 1: Negative Reviewed, dictated and finalized at location A. S REPRESENTATIVE [employer]
== END 2022-10-20 08:29 | disposition home or self-care (01) ==
PROVIDERS: PCP Family Medicine; Visit Provider Nurse Practitioner
DX: Z12.31 Encounter for screening mammogram for malignant neoplasm of breast (principal)
CPT/HCPCS: 77063; 77067

== ENCOUNTER 2023-09-25 16:35 | Outpatient (CLI) | payer MEDICARE, SELFPAY ==
--- NOTE | ~2023-09-25 | US_ITS ---
EXAMINATION: US venous doppler LE RT DATE: 09/25/2023 17:12 INDICATION: Right lower limb pain TECHNIQUE: Pérez scale images without and with compression and Doppler images of the right lower extre mity veins were obtained. COMPARISON: None FINDINGS: The right common femoral vein, profunda femoral vein, femoral vein, popliteal vein, peronea l trunk, posterior tibial veins, and greater saphenous vein are patent. IMPRESSION: 1. Patent right lower extremity veins. No evidence of deep venous thrombosis. Reviewed, dictated and finalized at location F. COMPOUNDER
== END 2023-09-25 16:36 | disposition home or self-care (01) ==
LOC: ANHIMG 16:36
PROVIDERS: PCP Family Medicine; Visit Provider Nurse Practitioner
DX: M79.604 Pain in right leg (principal)
CPT/HCPCS: 93971

== ENCOUNTER 2023-11-02 12:30 | Outpatient (RCR) | payer MEDICARE, SELFPAY ==
--- NOTE | 2023-10-04 16:16 | OPREHPOC ---
Outpatient Therapy Plan of Care This is a Multidisciplinary Plan of Care that may contain components documented by all disciplines (PT, OT, and ST.) PT Problem 1 PT Problem #1 Knowledge Deficit PT Goal 1 Goal 1* indep with HEP 2* demonstrate correct body mechanics and posture with activity during therapy PT Problem 2 PT Problem #2 Pain PT Goal 1 Goal 1* pt report pain at worst of 2/10 2* radicular pain R LE to mid thigh at worst 3* self assessment Oswestry score of 18% limitation in activity level. PT Problem 3 PT Problem #3 Impaired Strength PT Goal 1 Goal increase strength of trunk and LE's to improve mobility and stability to spine 1* pt perform 20 reps of mat strengthening exercises R and LE 2* 2 minute walking test distance of 360' 3* no pain increase reported with the 2 minute walking test 4* pt stand without forward rotation of R trunk and hip
--- NOTE | 2023-10-04 16:16 | PTOPEVAL1 ---
Assessment and note entered by Arely Queen, PT Evaluation Information Assessment Status Evaluation Diagnosis R leg pain Onset about 6 weeks ago Subjective Information no trauma or injury to leg, gradual increase in pain; no imaging or tests for leg; is more careful on stairs, walking is not as far; Activity: retired; indep with all home and self care tasks;except heavy home tasks- difficulty with; drives and does shopping; walks for fitness about 20-35 minutes when she can Reported Pain Level Pain Score Self Report Additional Pain Score Comments pain range in the past week: 0-4/10; R low back, posterior buttock, lateral leg to mid -lateral calf increase pain: walking/ standing 30-45 min decrease pain: sit/rest; have not been taking any meds for pain; not using heating pad- instruct on PRN use 10-15 min; no history of back pain; no issues with sleeping; Assessment PT Clinical Summary Georgiana has the diagnosis of R leg pain. She has lumbar pain, intermittent radicular into R LE to mid calf. Oswestry self assessment functional score of 28% limitation in activity level. She reports decreased walking, standing and activity tolerance, but with sitting/resting, pain eases. With the evaluation: she has tightness over R hamstring, quads/anterior hip and piriformis, with comparison to her L; weakness over trunk and hips, bilateral; pain is increased with standing trunk rotation to L and supine R hip IR; she has poor positioning of her trunk and hips in standing Skilled PT services are indicated for modalities to decrease pain, therapeutic exercises to stretch and strengthen trunk and LE's, with education for HEP and posture/body mechanics. Plan of Care Interventions Electrical Stimulation,Hot Pack/Cold Pack,Manual Therapy,Mechanical Traction,Neuro Re-education, Patient Education,Therapeutic Activities, Therapeutic Exercise,Ultrasound,Other Other Interventions taping, IASTM PT Services Indicated Yes Treatment Frequency and 2x/week for 8 weeks Duration These
--- NOTE | 2023-11-02 13:12 | PTOPDC ---
Assessment and note entered by Arely Queen, PT Discharge Information Assessment Status Discharge Diagnosis R leg pain Onset about 6 weeks ago Subjective Information no longer have any pain in her back or leg; is doing her exercises at home; has been walking about 2 miles, 2-3 x/wk; ready to be done with therapy; Reported Pain Level Pain Score 0: Self Report Additional Pain Score Comments pt reports no pain in the past week; Assessment PT Clinical Summary Georgiana has received 9 PT sessions. Compared to the initial evaluation: no longer has any pain in her back and does not have any radicular pain into R LE; increase strength of trunk and hips; self assessment Oswestry from 28% to 0% limitation in activity level; education completed for HEP and posture. The goals were achieved, except reps with supine exercises partially met. Discharge PT services. She is to continue with her HEP. Plan of Care PT Services Indicated No
== END 2023-11-02 14:24 | disposition home or self-care (01) ==
LOC: ANHPT 12:30
PROVIDERS: PCP Nurse Practitioner; Visit Provider Nurse Practitioner
DX: M79.604 Pain in right leg (principal)
CPT/HCPCS: 97110; 97140; 97161; 97530

== ENCOUNTER 2024-04-03 08:27 | Outpatient (CLI) | payer MEDICARE, SELFPAY ==
--- NOTE | ~2024-04-03 | MM_ITS ---
EXAMINATION: MM screening deon BI w roberto HISTORY: Screening TECHNIQUE: Craniocaudal and mediolateral oblique 3-D tomosynthesis images were obtained and synthetic 2-D images were generated. CAD analysis was submitted and interpreted. COMPARISON: Comparison to multiple prior studies sequentially, with oldest reviewed study dated 05/10. BREAST PARENCHYMAL COMPOSITION: Not dense: There are scattered areas of fibroglandular density. FINDINGS: There is no evidence of suspicious mass, calcification, or architectural distortion to sugg est malignancy in either breast. There has been no suspicious interval change. IMPRESSION: 1. No mammographic evidence of malignancy. 2. Recommend routine screening mammography in one year. BI-RADS Category 1: Negative Reviewed, dictated and finalized at location B.
--- NOTE | ~2024-04-03 | DEXA_ITS ---
Bone Density Report Name: ZEV BARRIGA Age: 79 Sex: Female Ethnicity: White Date of : 1945 Indication: postmenopausal; screening for osteoporosis; Referring Provider: RAKEL CARBAJAL Study: Bone densitometry was performed. Exam Date: April 03, 2024 Accession number: [id number] Bone Density: Region BMD T-score Z-score Classification AP Spine(L1-L4) 1.244 1.8 4.5 Normal Femoral Neck (Left) 0.769 -0.7 1.6 Normal Total Hip (Left) 0.975 0.3 2.4 Normal Femoral Neck (Right) 0.745 -0.9 1.4 Normal Total Hip (Right) 0.978 0.3 2.4 Normal Total Hip Mean 0.976 0.3 2.4 Normal World Health Organization criteria for BMD impression classify patients as: Normal (T-score at or above -1.0), Osteopenia (T-score between -1.0 and -2.5), or Osteoporosis (T-score at or below -2.5). 10-year Fracture Risk: FRAX not reported because: All T-scores for Spine Total, Hip Total, Femoral Neck at or above -1.0 Previous Exams: Region Exam Age BMD T-score BMD Change BMD Change Date g/cm2 vs Baseline vs Previous Total Hip(Left) 04/03/2024 79 0.975 0.3 0.047 (5.0%)# 0.047 (5.0%)# 03/07/2019 74 0.928 -0.1 Total Hip(Right) 04/03/2024 79 0.978 0.3 0.033 (3.5%)# 0.033 (3.5%)# 03/07/2019 74 0.944 0.0 *Denotes significance at 95% confidence level, LSC for Total Hip = 0.027 g/cm2 # Denotes dissimilar scan types or analysis methods Clinical Information Provided by Patient: Has used the following medications: Vitamin D Patient maximum height was 66.5 Menopause Age: 53 Drinks caffeinated beverages Onset of menses at age 10 Number of children 3 Impression: The patient has normal bone mass. No significant bone loss was observed. Discussion: BONE DENSITY IS ABOVE THE MINIMUM DESIRABLE LEVEL AT ALL SKELETAL SITES TESTED. This patient?s bone mineral density is above the minimum desirable level (T-score -1.0 or better) at all sites measured. The patient should follow a healthful lifestyle (good nutrition with adequate calcium and vitamin D, and appropriate weight-bearing exercise). Follow-Up: Consider repeating this study in 5 years or sooner if there is some new clinical indication. Reported by: ROGERS on 04/03/2024 9:06:00 AM. Reviewed, dictated and finalized at location [facility]
== END 2024-04-03 08:28 | disposition home or self-care (01) ==
LOC: ANHIMG 08:28
PROVIDERS: PCP Nurse Practitioner; Visit Provider Nurse Practitioner
DX: Z12.31 Encounter for screening mammogram for malignant neoplasm of breast (principal); M85.88 Other specified disorders of bone density and structure, other site
CPT/HCPCS: 77063; 77067; 77080

== ENCOUNTER 2024-08-15 10:05 | Outpatient (CLI) | payer MEDICARE, SELFPAY ==
[2024-08-15 12:41] LABS: Hematocrit 42.3 % (37.0-47.0); Hemoglobin 13.4 g/dL (12.0-15.0); Mean Corpuscular HGB Conc 31.7 g/dl (32-36); Mean Corpuscular Hemoglobin 30.6 pg (26-34); Mean Corpuscular Volume 96.6 fl (80-100); Mean Platelet Volume 10.1 fl (7.4-10.4); Platelet Count Result 224 k/mm3 (150-375); Red Blood Count 4.38 M/mm3 (4.2-5.4); Red Cell Distribution Width 12.8 % (11.5-14.5); White Blood Count 5.2 K/mm3 (4.5-10.0)
[2024-08-15 13:04] LABS: Alanine Aminotransferase 14 U/L (6-35); Albumin Level 4.2 g/dL (3.5-5.1); Alkaline Phosphatase 77 U/L (38-126); Anion Gap 4 mmol/L (4-12); Aspartate Amino Transferase 34 U/L (14-36); Bilirubin,Total 0.9 mg/dL (0.2-1.3); Blood Urea Nitrogen 20 mg/dL (7-17); Calcium 9.1 mg/dL (8.4-10.2); Carbon Dioxide 29 mmol/L (22-30); Chloride 107 mmol/L (98-107); Cholesterol 200 mg/dL (0-200); Estimated Glomerular Filt Rate 60; Glucose 95 mg/dL (65-110); HDL Direct 55 mg/dL; Potassium 4.2 mmol/L (3.4-5.0); Sodium 140 mmol/L (137-145); Triglycerides 120 mg/dL (<150)
[2024-08-15 13:15] LABS: LDL Cholesterol Direct 111 mg/dL; Vitamin D 25 Hydroxy 30.9 ng/mL
== END 2024-08-15 10:06 | disposition home or self-care (01) ==
PROVIDERS: PCP Nurse Practitioner; Visit Provider Nurse Practitioner
DX: E55.9 Vitamin D deficiency, unspecified (principal); I10 Essential (primary) hypertension
CPT/HCPCS: 36415; 80053; 80061; 82306; 84443; 85027

== ENCOUNTER 2025-01-31 10:50 | Outpatient (CLI) | payer MEDICARE, SELFPAY ==
--- OUTSIDE RECORDS SUMMARY | 2025-01-31 10:54 | XMS_ITS | Clinical Summary ---
Author Organization [facility] [place] [address] Address [address] [place] [address] Care Team Providers Care Chain Maker Name Role Phone Luann Lyons DO Primary Care Provider +1- [phone] Allergies Active Allergy Reactions Criticality Noted Date Comments Penicillins Rash Medium 08/13/2021 Medications sertraline (ZOLOFT) 50 mg tablet Take 50 mg by mouth daily 08/02/2021 Active metoprolol XL (TOPROL-XL) 25 mg extended release tablet Take 25 mg by mouth daily 07/06/2021 Active simvastatin (ZOCOR) 40 mg tablet Take 40 mg by mouth daily 07/25/[address] (PROTONIX) 40 mg EC tablet TAKE 1 TABLET BY MOUTH AT BEDTIME FOR 4 WEEKS 08/08/2021 Active lisinopriL (PRINIVIL,ZESTR IL) 40 mg tablet Take 40 mg by mouth daily 02/15/2022 Active Active Problems Problem Noted Date Diagnosed Date Anxiety 08/13/2021 Hyperlipidemia LDL goal <100 08/13/2021 Hypertensive urgency 08/13/2021 Essential hypertension 08/13/2021 Surgical History Surgery Date Site/Laterality Comments CERVICAL DISCECTOMY Medical History Medical History Date Comments Acute endometritis Hypertension Vitamin D deficiency Family History Medical History Relation Name Comments Glaucoma Father Heart disease Father Hypertension Father Kidney cancer Father Coronary artery disease Mother Depression Mother Hypertension Mother Relation Name Status Comments Father Mother Social History Tobacco Use Types Packs/Day Years Used Date Smoking Tobacco: Never Smokeless Tobacco: Never AUDIT-C Answer Date Recorded Q1: How often do you have a drink containing alcohol? 4 or more times a week 08/13/2021 Q2: How many drinks containi ng alcohol do you have on a typical day when you are drinking? 1 or 2 Q3: How often do you have si x or more drinks on one occasion? 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 Gender Identity Not on file Sexual Orientation Not on file Obstetrics History Last Filed Vital Signs Vital Sign Reading Time Taken Comments Blood Pressure 118/70 03/28/2022 10:32 AM CDT Pulse 68 03/28/2022 10:32 AM CDT Temperature - - Respiratory Rate - - Oxygen Saturation 98% 03/28/2022 10:32 AM CDT Inhaled Oxygen Concentration - - Weight 72.1 kg (159 lb) 03/28/2022 10:32 AM CDT Height 167.6 cm (5' 6 ) 03/28/2022 10:32 AM CDT Body Mass Index 25.66 03/28/2022 10:32 AM CDT Plan of Treatment Health Maintenance Due Date Last Done Comments Depression Screening 1945 Fall Risk Assessment 1945 Osteoporosis Screening-Bone Density Scan 1945 DTaP/Tdap/Td Vaccine (1 - Tdap) 1954 Hepatitis B Screening 1961 Pneumococcal vaccine 65+ (1 of 1 - PCV) 1993 Zoster Vaccine (1 of 2) 1993 Well Visit 65+ 01/07/2008 Covid-19 Vaccine (4 - 2023-2 5 season) 2024 07/23/2021, 12/03/2020, 11/05/2020 Influenza Vaccine (Season Ended) 2025 07/23/2021, 06/24/2020, 07/02/2019, Additional history exists Insurance MEDICARE [facility] Care Teams Chain Maker Relationship Specialty Start Date End Date Luann Lyons DO PCP - General Family Medicine 08/12/21
--- OUTSIDE RECORDS SUMMARY | 2025-01-31 10:54 | XMS_ITS | Referral Summary ---
Author Organization [facility] [place] [address] Address [address] [place] [address] Care Team Providers Care Sodium Methylate Operator Name Role Phone Luann Lyons DO Primary Care Provider +1- [phone] Allergies Active Allergy Reactions Criticality Noted Date [...] 08/13/2021 Hypertensive urgency 08/13/2021 Essential hypertension 08/13/2021 Social History Tobacco Use Types Packs/Day Years [...] on file Legal Sex Female 11:15 AM [employer] Gender Identity Not on file Sexual Orientation Not on file Last Filed Vital Signs Vital Sign Reading [...] 03/28/2022 10:32 AM CDT Plan of Treatment Not on file Insurance MEDICARE [facility] Care Teams Sodium Methylate Operator Relationship Specialty Start Date End Date Vernace, Luann Malini, DO PCP - General Family Medicine 08/12/21
[2025-02-06 11:54] LABS: NIL 0.01 IU/mL; Quantiferon TB Plus, 1T NEGATIVE (NEGATIVE)
== END 2025-01-31 10:51 | disposition home or self-care (01) ==
LOC: ANHGOSHLAB 10:52
PROVIDERS: PCP Nurse Practitioner; Visit Provider Nurse Practitioner
DX: Z20.1 Contact with and (suspected) exposure to tuberculosis (principal)
CPT/HCPCS: 36415; 86480